=== PATIENT | female | born 1995 | race African-American/Black ===

== ENCOUNTER 2019-10-13 06:32 | Emergency (ER) | payer SELFPAY ==
[~2019-10-13] VITALS: Ht 157.5 cm; Wt 77.2 kg
[2019-10-13 06:32] VITALS: BP 130/78
[2019-10-13] MEDS ORDERED: PRED20TA PO (06:53)
[2019-10-13] MEDS ORDERED: ALBU2.5V8 INH (06:53)
--- NOTE | 2019-10-13 06:53 | PHYS DOC ---
Past History Past Medical History: Asthma Past Surgical History: No Surgical History Smoking: Non-smoker Alcohol Use: Occasionally Additional Alcohol Information: was drinking last night General Adult EDM: Chief Complaint: ASTHMA HPI: HPI: Patient is a 24-year-old female who presents to the emergency department for evaluation of an asthma exacerbation, which began this morning after hanging out with some friends who were smoking marijuana, (the patient denies that she was smoking). She states she has a history of asthma, but has run out of her inhaler. She has not had any nasal congestion, or fever. She arrives via EMS and was given a nebulizer treatment in route, and is feeling significantly better by the time of arrival. She has no other complaints. She denies any pain, nausea, vomiting, headache, and has not had a productive cough. Review of Systems: Review of Systems: Constitutional: Denies fever or chills Eyes: Denies change in visual acuity HENT: Denies nasal congestion or sore throat Respiratory: As per HPI Cardiovascular: Denies chest pain or edema GI: Denies abdominal pain, nausea, vomiting, bloody stools or diarrhea : Denies dysuria, denies Musculoskeletal: Denies back pain or joint pain Integument: Denies rash Neurologic: Denies headache, focal weakness or sensory changes Heart Score: Risk Factors: Risk Factors: DM, Current or recent (<one month) smoker, HTN, HLP, family history of CAD, obesity. Risk Scores: Score 0 - 3: 2.5% MACE over next 6 weeks - Discharge Home Score 4 - 6: 20.3% MACE over next 6 weeks - Admit for Clinical Observation Score 7 - 10: 72.7% MACE over next 6 weeks - Early Invasive Strategies Current Medications: Current Meds: Current Medications Medications (Trade) Dose Ordered Sig/Trudy Start Time Stop Time Status Last Admin Dose Admin Albuterol/ Ipratropium (Duoneb) 3 ml 1X ONCE 10/13/19 07:00 10/13/19 07:01 UNV Prednisone (Prednisone) 60 mg 1X ONCE 10/13/19 07:00 10/13/19 07:01 UNV Allergies: Allergies: Allergies Coded Allergies Type Severity Reaction Last Updated Verified No Known Drug Allergies 10/13/19 No Physical Exam: PE: PHYSICAL EXAM: CONSTITUTIONAL: Well developed, well nourished HEAD: normocephalic, atraumatic EENT: PERRL, EOMI. Conjunctivae normal color, sclerae non-icteric; moist mucous membranes. NECK: Supple, non-tender; no meningismus. LUNGS: There are mildly diminished breath sounds, some faint expiratory wheezes, breathing even and unlabored. HEART: Regular rate and rhythm, no murmur CHEST: No deformity; non-tender ABDOMEN: The abdomen is soft, and non-tender, no masses or bruits. EXTREM: Normal ROM; no deformity, no calf tenderness. Normal pulses palpable in all extremities. There is no pedal edema. SKIN: No rash; no diaphoresis NEURO: Alert; normal speech and cognition; CN's grossly intact; strength grossly intact without focal deficit. BACK: No CVA TTP. Current Patient Data: Vital Signs: Vital Signs Date Time Temp Pulse Resp B/P (MAP) Pulse Ox O2 Delivery O2 Flow Rate FiO2 10/13/19 06:32 98.5 84 18 130/78 (95) 98 Room Air EKG: EKG: [] Radiology/Procedures: Radiology/Procedures: [] Course & Med Decision Making: Course & Med Decision Making Patient is feeling significantly better after nebulizer treatments. Discussed home care plan, the need for close follow-up, and return precautions. Dragon Disclaimer: Spectropath Disclaimer: This electronic medical record was generated, in whole or in part, using a voice recognition dictation system. Departure Departure: Impression: Primary Impression: Acute asthma exacerbation Disposition: HOME/RESIDENCE PRIOR TO ADM Condition: STABLE Referrals: J[facility] PABLO (PCP) Patient Instructions: Asthma Attacks, Prevention, Asthma, Adult Scripts Albuterol Sulfate (PROAIR HFA INHALER) 8.5 Gm Hfa.aer.ad 2 PUFF INH PRN Q6HRS PRN for SHORTNESS OF BREATH, #1 INHALER 0 Refills Prov: BRITTANY JOHNSON MD 10/13/19 Prednisone (PREDNISONE) 20 Mg Tablet 40 MG PO DAILY for - for 4 Days, #8 TAB Begin 10/14/19 Prov: BRITTANY JOHNSON MD 10/13/19 Justification of Admission: Justification of Admission: Justification of Admission Dx: N/A BRITTANY JOHNSON MD Oct 13, 2019 06:53
[2019-10-13] MEDS ORDERED: predniSONE 20 MG TABLET PO ONE (07:15)
[2019-10-13] MEDS ORDERED: IPRATRPIUM/ALBUTEROL 0.5/2.5MG 3 ML NEBU. NEB ONE (07:15)
== END 2019-10-13 07:17 | disposition home or self-care (01) ==
LOC: ER 06:32
DX: J45.901 Unspecified asthma with (acute) exacerbation (principal)
CPT/HCPCS: 94640; 99283; J7512